=== PATIENT | female | born 1945 | race Caucasian/White ===

== ENCOUNTER → 2017-02-28 | Outpatient (CLI) | payer BC, MEDICARE ==
[~2017-02-28] MED LIST: ALENDRONATE SOD70 MG PO; ASPIRIN EC81 M1 PO; ASPIRIN81 M2 PO; CRANBERRY PO; CRANBERRY200 MG PO; LIPITOR20 MG PO; LISINOPRIL20 MG PO; PAROXETINE HCL20 M1 PO; PAROXETINE HCL20 MG PO; VIT B12 PO; VITAMIN B12; VITAMIN B650 M1 PO; VITAMIN B650 MG PO; VITAMIN D1000 UNIT PO; VITAMIN D31000 UNIT PO
--- NOTE | ~2017-02-28 | BD1 ---
[facility] A Service of [facility] & [facility] RADIOLOGY TEXT RESULTS PATIENT: HUMA ARREOLA LOCATION: [facility] : 49 UNIT #: [id number] AGE: [address]: Magno nEriquez MD SEX: F ORDER DR: [id number] [facility] [address] [place], [place] [address] [id number] O MR#: [id number] Acc #: [id number] NAME: HUMA ARREOLA : 1945 SEX: F STUDY DATE/TIME: 02/28/2017 9:52 UNIT: [facility] ROOM: STUDY DESCRIPTION: BD Dexa Bone Dens 1+ Site Attending Physician: Magno Enriquez M.D. Ordering Physician: Magno Enriquez M.D. Primary Care Physician: Magno Enriquez M.D. MEDICAL IMAGING REPORT This report is preliminary unless electronic signature is present EXAM DXA scan, 02/28/2017 HISTORY 71-year-old postmenopausal female for osteoporosis screening. COMPARISON DXA scan, 11/18/2014. FINDINGS L1-L4 total bone mineral density is 0.756 g/cm2 with T-score -2.6 and Z-score -0.5, corresponding to the range of osteoporosis. This represents a 2.8% increase in bone mineral density since 11/18/2014 which is not statistically significant. Left femoral neck bone mineral density 0.611 g/cm2 with T-score -2.1 and Z-score -0.4, corresponding to the range of osteopenia. This represents a 4.2% decrease in bone density in the left femoral neck in comparison to 11/18/2014 which is not statistically significant. IMPRESSION 1. Osteoporosis in the lumbar spine. No statistically significant change in bone mineral density since 11/18/2014. 2. Osteopenia with the left femoral neck without statistically significant change compared to 11/18/2014. Dictated by... Irene Dick M.D. THIS IS AN ELECTRONICALLY VERIFIED REPORT Irene Dick M.D. at 03/01/2017 7:08 AM [facility] A Service of [facility] & [facility] RADIOLOGY TEXT RESULTS PATIENT: HUMA ARREOLA [id number] : 49 UNIT #: [id number] AGE: [address]: Magno Enriquez MD SEX: F ORDER DR: CASS/leila TD: 02/28/2017 22:08 JOB #: [id number] MEDICAL IMAGING REPORT Page 1 of 1 COPY
== END | disposition home or self-care (01) ==
LOC: CWCC 09:23
DX: M81.0 Age-related osteoporosis without current pathological fracture (principal); M85.88 Other specified disorders of bone density and structure, other site
CPT/HCPCS: 77080